=== PATIENT | female | born 1960 | race Caucasian/White ===

== ENCOUNTER 2024-06-14 21:24 | Emergency (ER) | payer SELFPAY ==
[~2024-06-14] VITALS: Ht 170.1 cm; Wt 117.9 kg
[2024-06-14] MEDS ORDERED: Acetaminophen/Hydrocodone HP 10/325 PO ONE (21:50)
[2024-06-14] MEDS ORDERED: HYDROCODONE-AC1 EACH PO (21:51)
== END 2024-06-14 21:55 | disposition home or self-care (01) ==
LOC: ED 21:24
DX: K04.7 Periapical abscess without sinus (principal)